=== PATIENT | female | born 1935 | race Caucasian/White ===

== ENCOUNTER 2018-12-08 09:42 | Day surgery (SDC) | payer MEDICARE ==
[2018-12-08] MEDS ORDERED: LIDOcaine 2% 5ml jelly ONE (11:33)
== END 2018-12-08 12:35 | disposition home or self-care (01) ==
LOC: WOUND CARE 09:42
PROVIDERS: ATTEND Surgery
DX: E11.622 Type 2 diabetes mellitus with other skin ulcer (principal); L97.812 Non-pressure chronic ulcer of other part of right lower leg with fat layer exposed; L97.821 Non-pressure chronic ulcer of other part of left lower leg limited to breakdown of skin; E11.65 Type 2 diabetes mellitus with hyperglycemia; I10 Essential (primary) hypertension; E78.00 Pure hypercholesterolemia, unspecified; L03.116 Cellulitis of left lower limb; L03.115 Cellulitis of right lower limb; Z90.710 Acquired absence of both cervix and uterus
CPT/HCPCS: 36416; 82948; 97597; A6021; A6154

== ENCOUNTER 2018-12-15 10:00 | Day surgery (SDC) | payer MEDICARE ==
[2018-12-15] MEDS ORDERED: LIDOcaine 2% 5ml jelly ONE (10:45)
== END 2018-12-15 12:25 | disposition home or self-care (01) ==
LOC: WOUND CARE 10:00
PROVIDERS: ATTEND Surgery
DX: E11.622 Type 2 diabetes mellitus with other skin ulcer (principal); L97.812 Non-pressure chronic ulcer of other part of right lower leg with fat layer exposed; L97.821 Non-pressure chronic ulcer of other part of left lower leg limited to breakdown of skin; E11.65 Type 2 diabetes mellitus with hyperglycemia; I10 Essential (primary) hypertension; E78.00 Pure hypercholesterolemia, unspecified; L03.116 Cellulitis of left lower limb; L03.115 Cellulitis of right lower limb; Z90.710 Acquired absence of both cervix and uterus
CPT/HCPCS: 36416; 82948; 97597; A4663; A6021; A6154

== ENCOUNTER 2018-12-23 09:49 | Day surgery (SDC) | payer MEDICARE ==
[2018-12-23] MEDS ORDERED: LIDOcaine/PRILOcaine 5gm cream TP ONE (10:20)
== END 2018-12-23 11:41 | disposition home or self-care (01) ==
LOC: WOUND CARE 09:49
PROVIDERS: ATTEND Surgery
DX: E11.622 Type 2 diabetes mellitus with other skin ulcer (principal); L97.812 Non-pressure chronic ulcer of other part of right lower leg with fat layer exposed; L97.821 Non-pressure chronic ulcer of other part of left lower leg limited to breakdown of skin; E11.65 Type 2 diabetes mellitus with hyperglycemia; I10 Essential (primary) hypertension; E78.00 Pure hypercholesterolemia, unspecified; L03.116 Cellulitis of left lower limb; L03.115 Cellulitis of right lower limb; Z90.710 Acquired absence of both cervix and uterus
CPT/HCPCS: 29581; A4663; A6021; A6154; A6446

== ENCOUNTER 2018-12-30 09:50 | Day surgery (SDC) | payer MEDICARE ==
[2018-12-30] MEDS ORDERED: LIDOcaine 2% 5ml jelly ONE (10:20)
== END 2018-12-30 11:04 | disposition home or self-care (01) ==
LOC: WOUND CARE 09:50
PROVIDERS: ATTEND Surgery
DX: E11.622 Type 2 diabetes mellitus with other skin ulcer (principal); L97.812 Non-pressure chronic ulcer of other part of right lower leg with fat layer exposed; L97.821 Non-pressure chronic ulcer of other part of left lower leg limited to breakdown of skin; E11.65 Type 2 diabetes mellitus with hyperglycemia; I10 Essential (primary) hypertension; E78.00 Pure hypercholesterolemia, unspecified; L03.116 Cellulitis of left lower limb; L03.115 Cellulitis of right lower limb; Z90.710 Acquired absence of both cervix and uterus
CPT/HCPCS: 97597; A4663; A6021; A6154; A6446

== ENCOUNTER 2019-01-06 09:45 | Day surgery (SDC) | payer MEDICARE ==
[2019-01-06] MEDS ORDERED: LIDOcaine 2% 5ml jelly ONE ×2 (10:51)
== END 2019-01-06 12:05 | disposition home or self-care (01) ==
LOC: WOUND CARE 09:45
PROVIDERS: ATTEND Surgery
DX: E11.622 Type 2 diabetes mellitus with other skin ulcer (principal); L97.812 Non-pressure chronic ulcer of other part of right lower leg with fat layer exposed; L97.821 Non-pressure chronic ulcer of other part of left lower leg limited to breakdown of skin; E11.36 Type 2 diabetes mellitus with diabetic cataract; E11.65 Type 2 diabetes mellitus with hyperglycemia; M19.90 Unspecified osteoarthritis, unspecified site; I10 Essential (primary) hypertension; E78.00 Pure hypercholesterolemia, unspecified; L03.116 Cellulitis of left lower limb; L03.115 Cellulitis of right lower limb; Z90.710 Acquired absence of both cervix and uterus; Z86.73 Personal history of transient ischemic attack (TIA), and cerebral infarction without residual deficits; Z87.891 Personal history of nicotine dependence
CPT/HCPCS: 82948; A6209; A6222; C5271; Q4102; A4663; A6250; A6446

== ENCOUNTER 2019-01-14 10:55 | Day surgery (SDC) | payer MEDICARE ==
[2019-01-14] MEDS ORDERED: LIDOcaine 2% 5ml jelly ONE (11:23)
== END 2019-01-14 12:46 | disposition home or self-care (01) ==
LOC: WOUND CARE 10:55
PROVIDERS: ATTEND Surgery
DX: E11.622 Type 2 diabetes mellitus with other skin ulcer (principal); L97.812 Non-pressure chronic ulcer of other part of right lower leg with fat layer exposed; L97.821 Non-pressure chronic ulcer of other part of left lower leg limited to breakdown of skin; E11.36 Type 2 diabetes mellitus with diabetic cataract; E11.65 Type 2 diabetes mellitus with hyperglycemia; M19.90 Unspecified osteoarthritis, unspecified site; I10 Essential (primary) hypertension; E78.00 Pure hypercholesterolemia, unspecified; L03.116 Cellulitis of left lower limb; L03.115 Cellulitis of right lower limb; Z90.710 Acquired absence of both cervix and uterus; Z86.73 Personal history of transient ischemic attack (TIA), and cerebral infarction without residual deficits; Z87.891 Personal history of nicotine dependence
CPT/HCPCS: 97597; A4663; A6021; A6154; A6446

== ENCOUNTER 2019-01-20 10:10 | Day surgery (SDC) | payer MEDICARE ==
[2019-01-20] MEDS ORDERED: LIDOcaine 2% 5ml jelly ONE (10:50)
== END 2019-01-20 12:16 | disposition home or self-care (01) ==
LOC: WOUND CARE 10:10
PROVIDERS: ATTEND Surgery
DX: E11.622 Type 2 diabetes mellitus with other skin ulcer (principal); L97.812 Non-pressure chronic ulcer of other part of right lower leg with fat layer exposed; L97.821 Non-pressure chronic ulcer of other part of left lower leg limited to breakdown of skin; E11.36 Type 2 diabetes mellitus with diabetic cataract; E11.65 Type 2 diabetes mellitus with hyperglycemia; M19.90 Unspecified osteoarthritis, unspecified site; I10 Essential (primary) hypertension; E78.00 Pure hypercholesterolemia, unspecified; L03.116 Cellulitis of left lower limb; L03.115 Cellulitis of right lower limb; Z90.710 Acquired absence of both cervix and uterus; Z86.73 Personal history of transient ischemic attack (TIA), and cerebral infarction without residual deficits; Z87.891 Personal history of nicotine dependence
CPT/HCPCS: 97597; A6209; A6222; C5271; Q4102; A4663; A6250; A6446

== ENCOUNTER 2019-01-27 10:34 | Day surgery (SDC) | payer MEDICARE ==
[2019-01-27] MEDS ORDERED: LIDOcaine 2% 5ml jelly ONE (11:38)
== END 2019-01-27 12:46 | disposition home or self-care (01) ==
LOC: WOUND CARE 10:34
PROVIDERS: ATTEND Surgery
DX: E11.622 Type 2 diabetes mellitus with other skin ulcer (principal); L97.812 Non-pressure chronic ulcer of other part of right lower leg with fat layer exposed; L97.821 Non-pressure chronic ulcer of other part of left lower leg limited to breakdown of skin; E11.36 Type 2 diabetes mellitus with diabetic cataract; E11.65 Type 2 diabetes mellitus with hyperglycemia; M19.90 Unspecified osteoarthritis, unspecified site; I10 Essential (primary) hypertension; E78.00 Pure hypercholesterolemia, unspecified; L03.116 Cellulitis of left lower limb; L03.115 Cellulitis of right lower limb; Z90.710 Acquired absence of both cervix and uterus; Z86.73 Personal history of transient ischemic attack (TIA), and cerebral infarction without residual deficits; Z87.891 Personal history of nicotine dependence
CPT/HCPCS: 36416; 82948; A6222; C5271; Q4102; A4663; A6250; A6446

== ENCOUNTER 2019-02-04 11:24 | Day surgery (SDC) | payer MEDICARE ==
[2019-02-04] MEDS ORDERED: LIDOcaine 2% 5ml jelly ONE (11:55)
== END 2019-02-04 12:52 | disposition home or self-care (01) ==
LOC: WOUND CARE 11:24
PROVIDERS: ATTEND Nurse Practitioner Family
DX: E11.622 Type 2 diabetes mellitus with other skin ulcer (principal); L97.812 Non-pressure chronic ulcer of other part of right lower leg with fat layer exposed; L97.821 Non-pressure chronic ulcer of other part of left lower leg limited to breakdown of skin; E11.36 Type 2 diabetes mellitus with diabetic cataract; E11.65 Type 2 diabetes mellitus with hyperglycemia; M19.90 Unspecified osteoarthritis, unspecified site; I10 Essential (primary) hypertension; E78.00 Pure hypercholesterolemia, unspecified; L03.116 Cellulitis of left lower limb; L03.115 Cellulitis of right lower limb; Z90.710 Acquired absence of both cervix and uterus; Z86.73 Personal history of transient ischemic attack (TIA), and cerebral infarction without residual deficits; Z87.891 Personal history of nicotine dependence
CPT/HCPCS: 36416; 97597; A4663; A6021; A6154

== ENCOUNTER 2019-02-11 11:18 | Day surgery (SDC) | payer MEDICARE ==
[2019-02-11] MEDS ORDERED: LIDOcaine 2% 5ml jelly ONE (12:01)
== END 2019-02-11 13:10 | disposition home or self-care (01) ==
LOC: WOUND CARE 11:18
PROVIDERS: ATTEND Nurse Practitioner Family
DX: E11.622 Type 2 diabetes mellitus with other skin ulcer (principal); L97.812 Non-pressure chronic ulcer of other part of right lower leg with fat layer exposed; L97.821 Non-pressure chronic ulcer of other part of left lower leg limited to breakdown of skin; E11.36 Type 2 diabetes mellitus with diabetic cataract; E11.65 Type 2 diabetes mellitus with hyperglycemia; M19.90 Unspecified osteoarthritis, unspecified site; I10 Essential (primary) hypertension; E78.00 Pure hypercholesterolemia, unspecified; L03.116 Cellulitis of left lower limb; L03.115 Cellulitis of right lower limb; Z90.710 Acquired absence of both cervix and uterus; Z86.73 Personal history of transient ischemic attack (TIA), and cerebral infarction without residual deficits; Z87.891 Personal history of nicotine dependence
CPT/HCPCS: 36416; 82948; 97597; 97598; A4663; A6021; A6154; A6446

== ENCOUNTER 2019-02-17 10:25 | Day surgery (SDC) | payer MEDICARE ==
[2019-02-17] MEDS ORDERED: LIDOcaine 2% 5ml jelly ONE (11:26)
== END 2019-02-17 12:25 | disposition home or self-care (01) ==
LOC: WOUND CARE 10:25
PROVIDERS: ATTEND Surgery
DX: E11.622 Type 2 diabetes mellitus with other skin ulcer (principal); L97.812 Non-pressure chronic ulcer of other part of right lower leg with fat layer exposed; L97.821 Non-pressure chronic ulcer of other part of left lower leg limited to breakdown of skin; E11.36 Type 2 diabetes mellitus with diabetic cataract; E11.65 Type 2 diabetes mellitus with hyperglycemia; E11.69 Type 2 diabetes mellitus with other specified complication; M19.90 Unspecified osteoarthritis, unspecified site; I10 Essential (primary) hypertension; E78.00 Pure hypercholesterolemia, unspecified; K21.9 Gastro-esophageal reflux disease without esophagitis; Z90.710 Acquired absence of both cervix and uterus; Z86.73 Personal history of transient ischemic attack (TIA), and cerebral infarction without residual deficits; Z87.891 Personal history of nicotine dependence
CPT/HCPCS: 82948; 97597; 97598; A4663; A6021; A6154; A6446

== ENCOUNTER 2019-02-24 10:20 | Day surgery (SDC) | payer MEDICARE ==
[2019-02-24] MEDS ORDERED: LIDOcaine 2% 5ml jelly ONE ×2 (11:30→11:45)
== END 2019-02-24 12:17 | disposition home or self-care (01) ==
LOC: WOUND CARE 10:20
PROVIDERS: ATTEND Surgery
DX: E11.622 Type 2 diabetes mellitus with other skin ulcer (principal); L97.812 Non-pressure chronic ulcer of other part of right lower leg with fat layer exposed; L97.821 Non-pressure chronic ulcer of other part of left lower leg limited to breakdown of skin; E11.36 Type 2 diabetes mellitus with diabetic cataract; E11.65 Type 2 diabetes mellitus with hyperglycemia; E11.69 Type 2 diabetes mellitus with other specified complication; M19.90 Unspecified osteoarthritis, unspecified site; I10 Essential (primary) hypertension; E78.00 Pure hypercholesterolemia, unspecified; K21.9 Gastro-esophageal reflux disease without esophagitis; Z90.710 Acquired absence of both cervix and uterus; Z86.73 Personal history of transient ischemic attack (TIA), and cerebral infarction without residual deficits; Z87.891 Personal history of nicotine dependence
CPT/HCPCS: 36416; 82948; 97597; 97598; A4663; A6021; A6154; A6446

== ENCOUNTER 2019-03-03 09:31 | Day surgery (SDC) | payer MEDICARE ==
[2019-03-03] MEDS ORDERED: LIDOcaine 2% 5ml jelly ONE ×2 (10:45)
== END 2019-03-03 11:25 | disposition home or self-care (01) ==
LOC: WOUND CARE 09:31
PROVIDERS: ATTEND Surgery
DX: E11.622 Type 2 diabetes mellitus with other skin ulcer (principal); L97.812 Non-pressure chronic ulcer of other part of right lower leg with fat layer exposed; L97.821 Non-pressure chronic ulcer of other part of left lower leg limited to breakdown of skin; E11.36 Type 2 diabetes mellitus with diabetic cataract; E11.65 Type 2 diabetes mellitus with hyperglycemia; E11.69 Type 2 diabetes mellitus with other specified complication; M19.90 Unspecified osteoarthritis, unspecified site; I10 Essential (primary) hypertension; E78.00 Pure hypercholesterolemia, unspecified; K21.9 Gastro-esophageal reflux disease without esophagitis; Z90.710 Acquired absence of both cervix and uterus; Z86.73 Personal history of transient ischemic attack (TIA), and cerebral infarction without residual deficits; Z87.891 Personal history of nicotine dependence
CPT/HCPCS: 82948; 93970; C5271; C5272; Q4102; 15271; 15272; A4663; A6154; A6196; A6446

== ENCOUNTER 2019-03-10 10:27 | Day surgery (SDC) | payer MEDICARE ==
[2019-03-10] MEDS ORDERED: LIDOcaine 2% 5ml jelly ONE ×2 (11:10)
== END 2019-03-10 12:30 | disposition home or self-care (01) ==
LOC: WOUND CARE 10:27
PROVIDERS: ATTEND Surgery
DX: E11.622 Type 2 diabetes mellitus with other skin ulcer (principal); I83.012 Varicose veins of right lower extremity with ulcer of calf; L97.211 Non-pressure chronic ulcer of right calf limited to breakdown of skin; L97.812 Non-pressure chronic ulcer of other part of right lower leg with fat layer exposed; I83.022 Varicose veins of left lower extremity with ulcer of calf; L97.221 Non-pressure chronic ulcer of left calf limited to breakdown of skin; L97.821 Non-pressure chronic ulcer of other part of left lower leg limited to breakdown of skin; E11.36 Type 2 diabetes mellitus with diabetic cataract; E11.65 Type 2 diabetes mellitus with hyperglycemia; E11.69 Type 2 diabetes mellitus with other specified complication; M19.90 Unspecified osteoarthritis, unspecified site; I10 Essential (primary) hypertension; I87.2 Venous insufficiency (chronic) (peripheral); E78.00 Pure hypercholesterolemia, unspecified; K21.9 Gastro-esophageal reflux disease without esophagitis; Z90.710 Acquired absence of both cervix and uterus; Z86.73 Personal history of transient ischemic attack (TIA), and cerebral infarction without residual deficits; Z87.891 Personal history of nicotine dependence
CPT/HCPCS: 36416; 82948; G0463; A4663; A6021; A6154; A6196; A6446

== ENCOUNTER 2019-03-17 10:26 | Day surgery (SDC) | payer MEDICARE ==
[2019-03-17] MEDS ORDERED: LIDOcaine 2% 5ml jelly ONE (11:02)
== END 2019-03-17 11:52 | disposition home or self-care (01) ==
LOC: WOUND CARE 10:26
PROVIDERS: ATTEND Surgery
DX: E11.622 Type 2 diabetes mellitus with other skin ulcer (principal); I83.012 Varicose veins of right lower extremity with ulcer of calf; L97.211 Non-pressure chronic ulcer of right calf limited to breakdown of skin; L97.812 Non-pressure chronic ulcer of other part of right lower leg with fat layer exposed; I83.022 Varicose veins of left lower extremity with ulcer of calf; L97.221 Non-pressure chronic ulcer of left calf limited to breakdown of skin; L97.821 Non-pressure chronic ulcer of other part of left lower leg limited to breakdown of skin; S51.801D Unspecified open wound of right forearm, subsequent encounter; E11.36 Type 2 diabetes mellitus with diabetic cataract; E11.65 Type 2 diabetes mellitus with hyperglycemia; M19.90 Unspecified osteoarthritis, unspecified site; I10 Essential (primary) hypertension; I87.2 Venous insufficiency (chronic) (peripheral); E78.00 Pure hypercholesterolemia, unspecified; K21.9 Gastro-esophageal reflux disease without esophagitis; Z90.710 Acquired absence of both cervix and uterus; Z86.73 Personal history of transient ischemic attack (TIA), and cerebral infarction without residual deficits; Z87.891 Personal history of nicotine dependence; X58.XXXD Exposure to other specified factors, subsequent encounter
CPT/HCPCS: C5271; Q4102; 15271

== ENCOUNTER 2019-03-24 10:27 | Outpatient (CLI) | payer MEDICARE ==
[2019-03-24] MEDS ORDERED: LIDOcaine 2% 5ml jelly ONE (10:47)
== END 2019-03-24 11:57 | disposition home or self-care (01) ==
LOC: WOUND CARE 10:27 → EDSTATUS 10:30 → WOUND CARE 11:57
PROVIDERS: ATTEND Surgery
DX: E11.622 Type 2 diabetes mellitus with other skin ulcer (principal); I83.012 Varicose veins of right lower extremity with ulcer of calf; L97.211 Non-pressure chronic ulcer of right calf limited to breakdown of skin; L97.812 Non-pressure chronic ulcer of other part of right lower leg with fat layer exposed; I83.022 Varicose veins of left lower extremity with ulcer of calf; L97.221 Non-pressure chronic ulcer of left calf limited to breakdown of skin; L97.821 Non-pressure chronic ulcer of other part of left lower leg limited to breakdown of skin; E11.36 Type 2 diabetes mellitus with diabetic cataract; E11.65 Type 2 diabetes mellitus with hyperglycemia; M19.90 Unspecified osteoarthritis, unspecified site; I10 Essential (primary) hypertension; I87.2 Venous insufficiency (chronic) (peripheral); E78.00 Pure hypercholesterolemia, unspecified; K21.9 Gastro-esophageal reflux disease without esophagitis; Z90.710 Acquired absence of both cervix and uterus; Z86.73 Personal history of transient ischemic attack (TIA), and cerebral infarction without residual deficits; Z87.891 Personal history of nicotine dependence
CPT/HCPCS: 36416; 82948; G0463

== ENCOUNTER 2019-03-31 10:29 | Day surgery (SDC) | payer MEDICARE ==
[2019-03-31] MEDS ORDERED: LIDOcaine 2% 5ml jelly ONE (11:02)
== END 2019-03-31 11:53 | disposition home or self-care (01) ==
LOC: WOUND CARE 10:29
PROVIDERS: ATTEND Surgery
DX: E11.622 Type 2 diabetes mellitus with other skin ulcer (principal); I83.012 Varicose veins of right lower extremity with ulcer of calf; L97.211 Non-pressure chronic ulcer of right calf limited to breakdown of skin; L97.812 Non-pressure chronic ulcer of other part of right lower leg with fat layer exposed; I83.022 Varicose veins of left lower extremity with ulcer of calf; L97.221 Non-pressure chronic ulcer of left calf limited to breakdown of skin; L97.821 Non-pressure chronic ulcer of other part of left lower leg limited to breakdown of skin; E11.36 Type 2 diabetes mellitus with diabetic cataract; E11.65 Type 2 diabetes mellitus with hyperglycemia; M19.90 Unspecified osteoarthritis, unspecified site; I10 Essential (primary) hypertension; I87.2 Venous insufficiency (chronic) (peripheral); E78.00 Pure hypercholesterolemia, unspecified; K21.9 Gastro-esophageal reflux disease without esophagitis; Z90.710 Acquired absence of both cervix and uterus; Z86.73 Personal history of transient ischemic attack (TIA), and cerebral infarction without residual deficits; Z87.891 Personal history of nicotine dependence
CPT/HCPCS: 15271; 36416; 82948; 97597; Q4101

== ENCOUNTER 2019-04-07 10:30 | Outpatient (CLI) | payer MEDICARE ==
[2019-04-07] MEDS ORDERED: LIDOcaine 2% 5ml jelly ONE (11:21)
== END 2019-04-07 12:10 | disposition home or self-care (01) ==
LOC: WOUND CARE 10:30 → EDSTATUS 10:30 → WOUND CARE 12:10
PROVIDERS: ATTEND Surgery
DX: E11.622 Type 2 diabetes mellitus with other skin ulcer (principal); I83.012 Varicose veins of right lower extremity with ulcer of calf; L97.211 Non-pressure chronic ulcer of right calf limited to breakdown of skin; L97.812 Non-pressure chronic ulcer of other part of right lower leg with fat layer exposed; I83.022 Varicose veins of left lower extremity with ulcer of calf; L97.221 Non-pressure chronic ulcer of left calf limited to breakdown of skin; L97.821 Non-pressure chronic ulcer of other part of left lower leg limited to breakdown of skin; E11.36 Type 2 diabetes mellitus with diabetic cataract; E11.65 Type 2 diabetes mellitus with hyperglycemia; M19.90 Unspecified osteoarthritis, unspecified site; I10 Essential (primary) hypertension; I87.2 Venous insufficiency (chronic) (peripheral); E78.00 Pure hypercholesterolemia, unspecified; K21.9 Gastro-esophageal reflux disease without esophagitis; Z90.710 Acquired absence of both cervix and uterus; Z86.73 Personal history of transient ischemic attack (TIA), and cerebral infarction without residual deficits; Z87.891 Personal history of nicotine dependence
CPT/HCPCS: 36416; 82948; G0463

== ENCOUNTER 2019-04-14 10:25 | Day surgery (SDC) | payer MEDICARE ==
[2019-04-14] MEDS ORDERED: LIDOcaine 2% 5ml jelly ONE (10:54)
== END 2019-04-14 11:57 | disposition home or self-care (01) ==
LOC: WOUND CARE 10:25
PROVIDERS: ATTEND Surgery
DX: E11.622 Type 2 diabetes mellitus with other skin ulcer (principal); I83.012 Varicose veins of right lower extremity with ulcer of calf; L97.211 Non-pressure chronic ulcer of right calf limited to breakdown of skin; L97.812 Non-pressure chronic ulcer of other part of right lower leg with fat layer exposed; I83.022 Varicose veins of left lower extremity with ulcer of calf; L97.221 Non-pressure chronic ulcer of left calf limited to breakdown of skin; L97.821 Non-pressure chronic ulcer of other part of left lower leg limited to breakdown of skin; E11.36 Type 2 diabetes mellitus with diabetic cataract; E11.65 Type 2 diabetes mellitus with hyperglycemia; M19.90 Unspecified osteoarthritis, unspecified site; I10 Essential (primary) hypertension; I87.2 Venous insufficiency (chronic) (peripheral); E78.00 Pure hypercholesterolemia, unspecified; K21.9 Gastro-esophageal reflux disease without esophagitis; Z90.710 Acquired absence of both cervix and uterus; Z86.73 Personal history of transient ischemic attack (TIA), and cerebral infarction without residual deficits; Z87.891 Personal history of nicotine dependence
CPT/HCPCS: 15271; 97597; A6209; Q4101; A4663; A6196; A6250; A6446

== ENCOUNTER 2019-04-21 10:31 | Day surgery (SDC) | payer MEDICARE ==
[2019-04-21] MEDS ORDERED: LIDOcaine 2% 5ml jelly ONE ×2 (11:03)
[2019-04-21] MEDS ORDERED: LIDOcaine 1%/PF 5ML 10 MG/ML VIAL ONE (11:24)
== END 2019-04-21 11:55 | disposition home or self-care (01) ==
LOC: WOUND CARE 10:31
PROVIDERS: ATTEND Surgery
DX: E11.622 Type 2 diabetes mellitus with other skin ulcer (principal); I83.012 Varicose veins of right lower extremity with ulcer of calf; L97.211 Non-pressure chronic ulcer of right calf limited to breakdown of skin; L97.812 Non-pressure chronic ulcer of other part of right lower leg with fat layer exposed; I83.022 Varicose veins of left lower extremity with ulcer of calf; L97.221 Non-pressure chronic ulcer of left calf limited to breakdown of skin; L97.821 Non-pressure chronic ulcer of other part of left lower leg limited to breakdown of skin; K61.0 Anal abscess; E11.36 Type 2 diabetes mellitus with diabetic cataract; E11.65 Type 2 diabetes mellitus with hyperglycemia; M19.90 Unspecified osteoarthritis, unspecified site; I10 Essential (primary) hypertension; I87.2 Venous insufficiency (chronic) (peripheral); E78.00 Pure hypercholesterolemia, unspecified; K21.9 Gastro-esophageal reflux disease without esophagitis; Z90.710 Acquired absence of both cervix and uterus; Z86.73 Personal history of transient ischemic attack (TIA), and cerebral infarction without residual deficits; Z87.891 Personal history of nicotine dependence
CPT/HCPCS: 10140; 36416; 82948; 87070; 87075; 87102; A6266; A4663; A6021; A6154; A6196; A6253; A6446

== ENCOUNTER 2019-04-23 10:00 | Day surgery (SDC) | payer MEDICARE ==
[2019-04-23] MEDS ORDERED: LIDOcaine 2% 5ml jelly ONE ×2 (10:32)
== END 2019-04-23 13:02 | disposition home or self-care (01) ==
LOC: WOUND CARE 10:00
PROVIDERS: ATTEND Surgery
DX: E11.622 Type 2 diabetes mellitus with other skin ulcer (principal); I83.012 Varicose veins of right lower extremity with ulcer of calf; L97.211 Non-pressure chronic ulcer of right calf limited to breakdown of skin; L97.812 Non-pressure chronic ulcer of other part of right lower leg with fat layer exposed; I83.022 Varicose veins of left lower extremity with ulcer of calf; L97.221 Non-pressure chronic ulcer of left calf limited to breakdown of skin; L97.821 Non-pressure chronic ulcer of other part of left lower leg limited to breakdown of skin; K61.0 Anal abscess; E11.36 Type 2 diabetes mellitus with diabetic cataract; E11.65 Type 2 diabetes mellitus with hyperglycemia; M19.90 Unspecified osteoarthritis, unspecified site; I10 Essential (primary) hypertension; I87.2 Venous insufficiency (chronic) (peripheral); E78.00 Pure hypercholesterolemia, unspecified; K21.9 Gastro-esophageal reflux disease without esophagitis; Z90.710 Acquired absence of both cervix and uterus; Z86.73 Personal history of transient ischemic attack (TIA), and cerebral infarction without residual deficits; Z87.891 Personal history of nicotine dependence
CPT/HCPCS: 15271; 82948; 97597; A6209; Q4101; A4663; A6154; A6196; A6250; A6446

== ENCOUNTER 2019-04-28 08:53 | Day surgery (SDC) | payer MEDICARE ==
[2019-04-28] MEDS ORDERED: LIDOcaine 2% 5ml jelly ONE (11:04)
== END 2019-04-28 12:14 | disposition home or self-care (01) ==
LOC: WOUND CARE 08:53
PROVIDERS: ATTEND Surgery
DX: E11.622 Type 2 diabetes mellitus with other skin ulcer (principal); I83.012 Varicose veins of right lower extremity with ulcer of calf; L97.211 Non-pressure chronic ulcer of right calf limited to breakdown of skin; L97.812 Non-pressure chronic ulcer of other part of right lower leg with fat layer exposed; I83.022 Varicose veins of left lower extremity with ulcer of calf; L97.221 Non-pressure chronic ulcer of left calf limited to breakdown of skin; L97.821 Non-pressure chronic ulcer of other part of left lower leg limited to breakdown of skin; K61.0 Anal abscess; E11.36 Type 2 diabetes mellitus with diabetic cataract; E11.65 Type 2 diabetes mellitus with hyperglycemia; M19.90 Unspecified osteoarthritis, unspecified site; I10 Essential (primary) hypertension; I87.2 Venous insufficiency (chronic) (peripheral); E78.00 Pure hypercholesterolemia, unspecified; K21.9 Gastro-esophageal reflux disease without esophagitis; Z90.710 Acquired absence of both cervix and uterus; Z86.73 Personal history of transient ischemic attack (TIA), and cerebral infarction without residual deficits; Z87.891 Personal history of nicotine dependence
CPT/HCPCS: A4663; A6154; A6196; A6253; A6446; G0463

== ENCOUNTER 2019-05-06 11:00 | Day surgery (SDC) | payer MEDICARE ==
[2019-05-06] MEDS ORDERED: LIDOcaine 2% 5ml jelly ONE (11:17)
== END 2019-05-06 12:43 | disposition home or self-care (01) ==
LOC: WOUND CARE 11:00
PROVIDERS: ATTEND Surgery
DX: E11.622 Type 2 diabetes mellitus with other skin ulcer (principal); I83.012 Varicose veins of right lower extremity with ulcer of calf; L97.211 Non-pressure chronic ulcer of right calf limited to breakdown of skin; L97.812 Non-pressure chronic ulcer of other part of right lower leg with fat layer exposed; I83.022 Varicose veins of left lower extremity with ulcer of calf; L97.221 Non-pressure chronic ulcer of left calf limited to breakdown of skin; L97.821 Non-pressure chronic ulcer of other part of left lower leg limited to breakdown of skin; K61.0 Anal abscess; E11.36 Type 2 diabetes mellitus with diabetic cataract; E11.65 Type 2 diabetes mellitus with hyperglycemia; M19.90 Unspecified osteoarthritis, unspecified site; I10 Essential (primary) hypertension; I87.2 Venous insufficiency (chronic) (peripheral); E78.00 Pure hypercholesterolemia, unspecified; K21.9 Gastro-esophageal reflux disease without esophagitis; Z90.710 Acquired absence of both cervix and uterus; Z86.73 Personal history of transient ischemic attack (TIA), and cerebral infarction without residual deficits; Z87.891 Personal history of nicotine dependence
CPT/HCPCS: 15271; 97597; Q4101

== ENCOUNTER 2019-05-14 11:24 | Outpatient (CLI) | payer MEDICARE | END 2019-05-14 12:25 | disposition home or self-care (01) | LOC: WOUND CARE 11:24 | PROVIDERS: ATTEND Nurse Practitioner | DX: E11.622 Type 2 diabetes mellitus with other skin ulcer (principal); I83.012 Varicose veins of right lower extremity with ulcer of calf; L97.211 Non-pressure chronic ulcer of right calf limited to breakdown of skin; L97.812 Non-pressure chronic ulcer of other part of right lower leg with fat layer exposed; I83.022 Varicose veins of left lower extremity with ulcer of calf; L97.221 Non-pressure chronic ulcer of left calf limited to breakdown of skin; L97.821 Non-pressure chronic ulcer of other part of left lower leg limited to breakdown of skin; K61.0 Anal abscess; E11.36 Type 2 diabetes mellitus with diabetic cataract; E11.65 Type 2 diabetes mellitus with hyperglycemia; M19.90 Unspecified osteoarthritis, unspecified site; I10 Essential (primary) hypertension; I87.2 Venous insufficiency (chronic) (peripheral); E78.00 Pure hypercholesterolemia, unspecified; K21.9 Gastro-esophageal reflux disease without esophagitis; Z90.710 Acquired absence of both cervix and uterus; Z86.73 Personal history of transient ischemic attack (TIA), and cerebral infarction without residual deficits; Z87.891 Personal history of nicotine dependence | CPT/HCPCS: 36416; 82948; G0463 ==

== ENCOUNTER 2019-05-21 11:30 | Outpatient (CLI) | payer MEDICARE ==
[2019-05-21 12:26] LABS: BASOPHILS # (AUTO) 0.1 X10'3 (0-0.2); BASOPHILS % (AUTO) 0.7 % (0-1); EOSINOPHILS # (AUTO) 0.3 X10'3 (0-0.9); EOSINOPHILS % (AUTO) 3.4 % (0-6); HEMATOCRIT 38.2 % (35.0-45.0); HEMOGLOBIN 12.8 g/dl (12.0-16.0); LYMPHOCYTES # (AUTO) 3.4 X10'3 (1.1-4.8); LYMPHOCYTES % (AUTO) 38.8 % (21-51); MEAN CORPUSCULAR HEMOGLOBIN 28.9 PG (27.0-31.0); MEAN CORPUSCULAR HGB CONC 33.4 g/dL (33.0-36.5); MEAN CORPUSCULAR VOLUME 86.5 FL (78-98); MEAN PLATELET VOLUME 7.7 FL (7.4-10.4); MONOCYTES # (AUTO) 0.7 X10'3 (0-0.9); MONOCYTES % (AUTO) 7.9 % (2-12); NEUTROPHILS # (AUTO) 4.3 X10'3 (1.8-7.7); NEUTROPHILS % (AUTO) 49.2 % (42-75); PLATELET COUNT 262 X10'3 (140-440); RED BLOOD COUNT 4.42 X10'6 (4.20-5.60); RED CELL DISTRIBUTION WIDTH 15.1 % (11.5-14.5); WHITE BLOOD COUNT 8.8 X10'3 (4.5-11.0)
[2019-05-21 12:34] LABS: ALANINE AMINOTRANSFERASE 15 U/L (12-78); ALBUMIN 3.5 G/DL (3.4-5.0); ALKALINE PHOSPHATASE 92 IU/L (46-116); ANION GAP 4 (8-16); ASPARTATE AMINO TRANSFERASE 14 U/L (10-37); BILIRUBIN,TOTAL 0.4 MG/DL (0.1-1.0); BLOOD UREA NITROGEN 18 MG/DL (7-18); BUN/CREATININE RATIO 21.7 (6.6-38.0); CALCIUM 10.9 MG/DL (8.5-10.1); CHLORIDE 105 MMOL/L (99-107); CREATININE 0.83 MG/DL (0.40-0.90); GLUCOSE 160 MG/DL (70-104); POTASSIUM 4.2 MMOL/L (3.5-5.1); SODIUM 142 MMOL/L (135-145); TOTAL CARBON DIOXIDE 33.4 MMOL/L (24-32); eGFR 65 ML/MIN
== END 2019-05-21 12:56 | disposition home or self-care (01) ==
LOC: WOUND CARE 11:30 → EDSTATUS 11:40 → WOUND CARE 12:56
PROVIDERS: ATTEND Nurse Practitioner
DX: E11.622 Type 2 diabetes mellitus with other skin ulcer (principal); I83.012 Varicose veins of right lower extremity with ulcer of calf; L97.211 Non-pressure chronic ulcer of right calf limited to breakdown of skin; L97.812 Non-pressure chronic ulcer of other part of right lower leg with fat layer exposed; I83.022 Varicose veins of left lower extremity with ulcer of calf; L97.221 Non-pressure chronic ulcer of left calf limited to breakdown of skin; L97.821 Non-pressure chronic ulcer of other part of left lower leg limited to breakdown of skin; K61.0 Anal abscess; E11.36 Type 2 diabetes mellitus with diabetic cataract; E11.65 Type 2 diabetes mellitus with hyperglycemia; M19.90 Unspecified osteoarthritis, unspecified site; I10 Essential (primary) hypertension; I87.2 Venous insufficiency (chronic) (peripheral); E78.00 Pure hypercholesterolemia, unspecified; K21.9 Gastro-esophageal reflux disease without esophagitis; Z90.710 Acquired absence of both cervix and uterus; Z86.73 Personal history of transient ischemic attack (TIA), and cerebral infarction without residual deficits; Z87.891 Personal history of nicotine dependence
CPT/HCPCS: 29580; 36415; 36416; 80053; 82948; 85025; 93306

== ENCOUNTER 2019-05-28 11:20 | Outpatient (CLI) | payer MEDICARE ==
[2019-05-28] MEDS ORDERED: LIDOcaine 2% 5ml jelly ONE (11:31)
== END 2019-05-28 12:27 | disposition home or self-care (01) ==
LOC: WOUND CARE 11:20 → EDSTATUS 11:40 → WOUND CARE 12:27
PROVIDERS: ATTEND Nurse Practitioner
DX: E11.622 Type 2 diabetes mellitus with other skin ulcer (principal); I83.012 Varicose veins of right lower extremity with ulcer of calf; L97.211 Non-pressure chronic ulcer of right calf limited to breakdown of skin; L97.812 Non-pressure chronic ulcer of other part of right lower leg with fat layer exposed; I83.022 Varicose veins of left lower extremity with ulcer of calf; L97.221 Non-pressure chronic ulcer of left calf limited to breakdown of skin; L97.821 Non-pressure chronic ulcer of other part of left lower leg limited to breakdown of skin; K61.0 Anal abscess; E11.36 Type 2 diabetes mellitus with diabetic cataract; E11.65 Type 2 diabetes mellitus with hyperglycemia; M19.90 Unspecified osteoarthritis, unspecified site; I10 Essential (primary) hypertension; I87.2 Venous insufficiency (chronic) (peripheral); E78.00 Pure hypercholesterolemia, unspecified; K21.9 Gastro-esophageal reflux disease without esophagitis; Z90.710 Acquired absence of both cervix and uterus; Z86.73 Personal history of transient ischemic attack (TIA), and cerebral infarction without residual deficits; Z87.891 Personal history of nicotine dependence
CPT/HCPCS: 29580; 29581; 36416; 82948

== ENCOUNTER 2019-06-01 13:45 | Outpatient (CLI) | payer MEDICARE | END 2019-06-01 14:50 | disposition home or self-care (01) | LOC: WOUND CARE 13:45 | PROVIDERS: ATTEND Nurse Practitioner Family | DX: E11.622 Type 2 diabetes mellitus with other skin ulcer (principal); I83.012 Varicose veins of right lower extremity with ulcer of calf; L97.211 Non-pressure chronic ulcer of right calf limited to breakdown of skin; L97.812 Non-pressure chronic ulcer of other part of right lower leg with fat layer exposed; I83.022 Varicose veins of left lower extremity with ulcer of calf; L97.221 Non-pressure chronic ulcer of left calf limited to breakdown of skin; L97.821 Non-pressure chronic ulcer of other part of left lower leg limited to breakdown of skin; K61.0 Anal abscess; E11.36 Type 2 diabetes mellitus with diabetic cataract; E11.65 Type 2 diabetes mellitus with hyperglycemia; M19.90 Unspecified osteoarthritis, unspecified site; I10 Essential (primary) hypertension; I87.2 Venous insufficiency (chronic) (peripheral); E78.00 Pure hypercholesterolemia, unspecified; K21.9 Gastro-esophageal reflux disease without esophagitis; Z90.710 Acquired absence of both cervix and uterus; Z86.73 Personal history of transient ischemic attack (TIA), and cerebral infarction without residual deficits; Z87.891 Personal history of nicotine dependence | CPT/HCPCS: 29580; 36416; 82948 ==

== ENCOUNTER 2019-06-03 13:35 | Day surgery (SDC) | payer MEDICARE ==
[2019-06-03] MEDS ORDERED: LIDOcaine 2% 5ml jelly ONE (13:57)
== END 2019-06-03 14:35 | disposition home or self-care (01) ==
LOC: WOUND CARE 13:35
PROVIDERS: ATTEND Nurse Practitioner
DX: E11.622 Type 2 diabetes mellitus with other skin ulcer (principal); I83.012 Varicose veins of right lower extremity with ulcer of calf; L97.211 Non-pressure chronic ulcer of right calf limited to breakdown of skin; L97.812 Non-pressure chronic ulcer of other part of right lower leg with fat layer exposed; I83.022 Varicose veins of left lower extremity with ulcer of calf; L97.221 Non-pressure chronic ulcer of left calf limited to breakdown of skin; L97.821 Non-pressure chronic ulcer of other part of left lower leg limited to breakdown of skin; K61.0 Anal abscess; E11.36 Type 2 diabetes mellitus with diabetic cataract; E11.65 Type 2 diabetes mellitus with hyperglycemia; M19.90 Unspecified osteoarthritis, unspecified site; I10 Essential (primary) hypertension; I87.2 Venous insufficiency (chronic) (peripheral); E78.00 Pure hypercholesterolemia, unspecified; K21.9 Gastro-esophageal reflux disease without esophagitis; Z90.710 Acquired absence of both cervix and uterus; Z86.73 Personal history of transient ischemic attack (TIA), and cerebral infarction without residual deficits; Z87.891 Personal history of nicotine dependence
CPT/HCPCS: 36416; 82948; 97597

== ENCOUNTER 2019-06-10 13:32 | Day surgery (SDC) | payer MEDICARE ==
[2019-06-10] MEDS ORDERED: LIDOcaine 2% 5ml jelly ONE (14:01)
== END 2019-06-10 15:02 | disposition home or self-care (01) ==
LOC: WOUND CARE 13:32
PROVIDERS: ATTEND Nurse Practitioner
DX: E11.622 Type 2 diabetes mellitus with other skin ulcer (principal); I83.012 Varicose veins of right lower extremity with ulcer of calf; L97.211 Non-pressure chronic ulcer of right calf limited to breakdown of skin; L97.812 Non-pressure chronic ulcer of other part of right lower leg with fat layer exposed; I83.022 Varicose veins of left lower extremity with ulcer of calf; L97.221 Non-pressure chronic ulcer of left calf limited to breakdown of skin; L97.821 Non-pressure chronic ulcer of other part of left lower leg limited to breakdown of skin; K61.0 Anal abscess; E11.36 Type 2 diabetes mellitus with diabetic cataract; E11.65 Type 2 diabetes mellitus with hyperglycemia; M19.90 Unspecified osteoarthritis, unspecified site; I10 Essential (primary) hypertension; I87.2 Venous insufficiency (chronic) (peripheral); E78.00 Pure hypercholesterolemia, unspecified; K21.9 Gastro-esophageal reflux disease without esophagitis; Z90.710 Acquired absence of both cervix and uterus; Z86.73 Personal history of transient ischemic attack (TIA), and cerebral infarction without residual deficits; Z87.891 Personal history of nicotine dependence
CPT/HCPCS: 36416; 82948; 97597

== ENCOUNTER 2019-06-16 13:53 | Day surgery (SDC) | payer MEDICARE ==
[2019-06-16] MEDS ORDERED: LIDOcaine 2% 5ml jelly ONE (14:05)
== END 2019-06-16 14:58 | disposition home or self-care (01) ==
LOC: WOUND CARE 13:53
PROVIDERS: ATTEND Nurse Practitioner
DX: E11.622 Type 2 diabetes mellitus with other skin ulcer (principal); I83.012 Varicose veins of right lower extremity with ulcer of calf; L97.211 Non-pressure chronic ulcer of right calf limited to breakdown of skin; L97.812 Non-pressure chronic ulcer of other part of right lower leg with fat layer exposed; I83.022 Varicose veins of left lower extremity with ulcer of calf; L97.221 Non-pressure chronic ulcer of left calf limited to breakdown of skin; L97.821 Non-pressure chronic ulcer of other part of left lower leg limited to breakdown of skin; K61.0 Anal abscess; E11.36 Type 2 diabetes mellitus with diabetic cataract; E11.65 Type 2 diabetes mellitus with hyperglycemia; M19.90 Unspecified osteoarthritis, unspecified site; I10 Essential (primary) hypertension; I87.2 Venous insufficiency (chronic) (peripheral); E78.00 Pure hypercholesterolemia, unspecified; K21.9 Gastro-esophageal reflux disease without esophagitis; Z90.710 Acquired absence of both cervix and uterus; Z86.73 Personal history of transient ischemic attack (TIA), and cerebral infarction without residual deficits; Z87.891 Personal history of nicotine dependence
CPT/HCPCS: 36416; 82948; 97597

== ENCOUNTER 2019-06-24 11:39 | Day surgery (SDC) | payer MEDICARE ==
[2019-06-24] MEDS ORDERED: LIDOcaine 2% 5ml jelly ONE (12:06)
== END 2019-06-24 12:51 | disposition home or self-care (01) ==
LOC: WOUND CARE 11:39
PROVIDERS: ATTEND Nurse Practitioner
DX: E11.622 Type 2 diabetes mellitus with other skin ulcer (principal); I83.012 Varicose veins of right lower extremity with ulcer of calf; L97.211 Non-pressure chronic ulcer of right calf limited to breakdown of skin; L97.812 Non-pressure chronic ulcer of other part of right lower leg with fat layer exposed; I83.022 Varicose veins of left lower extremity with ulcer of calf; L97.221 Non-pressure chronic ulcer of left calf limited to breakdown of skin; L97.821 Non-pressure chronic ulcer of other part of left lower leg limited to breakdown of skin; K61.0 Anal abscess; E11.36 Type 2 diabetes mellitus with diabetic cataract; E11.65 Type 2 diabetes mellitus with hyperglycemia; M19.90 Unspecified osteoarthritis, unspecified site; I10 Essential (primary) hypertension; I87.2 Venous insufficiency (chronic) (peripheral); E78.00 Pure hypercholesterolemia, unspecified; K21.9 Gastro-esophageal reflux disease without esophagitis; Z90.710 Acquired absence of both cervix and uterus; Z86.73 Personal history of transient ischemic attack (TIA), and cerebral infarction without residual deficits; Z87.891 Personal history of nicotine dependence
CPT/HCPCS: 36416; 82948; 97597

== ENCOUNTER 2019-07-01 11:15 | Outpatient (CLI) | payer MEDICARE | END 2019-07-01 12:44 | disposition home or self-care (01) | LOC: WOUND CARE 11:15 → EDSTATUS 11:20 → WOUND CARE 12:44 | PROVIDERS: ATTEND Nurse Practitioner | DX: E11.622 Type 2 diabetes mellitus with other skin ulcer (principal); I83.012 Varicose veins of right lower extremity with ulcer of calf; L97.211 Non-pressure chronic ulcer of right calf limited to breakdown of skin; L97.812 Non-pressure chronic ulcer of other part of right lower leg with fat layer exposed; I83.022 Varicose veins of left lower extremity with ulcer of calf; L97.221 Non-pressure chronic ulcer of left calf limited to breakdown of skin; L97.821 Non-pressure chronic ulcer of other part of left lower leg limited to breakdown of skin; K61.0 Anal abscess; E11.36 Type 2 diabetes mellitus with diabetic cataract; E11.65 Type 2 diabetes mellitus with hyperglycemia; M19.90 Unspecified osteoarthritis, unspecified site; I10 Essential (primary) hypertension; I87.2 Venous insufficiency (chronic) (peripheral); E78.00 Pure hypercholesterolemia, unspecified; K21.9 Gastro-esophageal reflux disease without esophagitis; Z90.710 Acquired absence of both cervix and uterus; Z86.73 Personal history of transient ischemic attack (TIA), and cerebral infarction without residual deficits; Z87.891 Personal history of nicotine dependence | CPT/HCPCS: 29580; 29581 ==

== ENCOUNTER 2019-07-08 11:27 | Outpatient (CLI) | payer MEDICARE | END 2019-07-08 12:53 | disposition home or self-care (01) | LOC: WOUND CARE 11:27 | PROVIDERS: ATTEND Nurse Practitioner | DX: E11.622 Type 2 diabetes mellitus with other skin ulcer (principal); I83.012 Varicose veins of right lower extremity with ulcer of calf; L97.211 Non-pressure chronic ulcer of right calf limited to breakdown of skin; L97.812 Non-pressure chronic ulcer of other part of right lower leg with fat layer exposed; I83.022 Varicose veins of left lower extremity with ulcer of calf; L97.221 Non-pressure chronic ulcer of left calf limited to breakdown of skin; L97.821 Non-pressure chronic ulcer of other part of left lower leg limited to breakdown of skin; K61.0 Anal abscess; E11.36 Type 2 diabetes mellitus with diabetic cataract; E11.65 Type 2 diabetes mellitus with hyperglycemia; M19.90 Unspecified osteoarthritis, unspecified site; I10 Essential (primary) hypertension; I87.2 Venous insufficiency (chronic) (peripheral); K21.9 Gastro-esophageal reflux disease without esophagitis; Z90.710 Acquired absence of both cervix and uterus; Z86.73 Personal history of transient ischemic attack (TIA), and cerebral infarction without residual deficits; Z87.891 Personal history of nicotine dependence | CPT/HCPCS: 29581 ==

== ENCOUNTER 2019-07-15 11:45 | Outpatient (CLI) | payer MEDICARE | END 2019-07-15 12:44 | disposition home or self-care (01) | LOC: WOUND CARE 11:45 | PROVIDERS: ATTEND Nurse Practitioner | DX: E11.622 Type 2 diabetes mellitus with other skin ulcer (principal); I83.012 Varicose veins of right lower extremity with ulcer of calf; L97.211 Non-pressure chronic ulcer of right calf limited to breakdown of skin; L97.818 Non-pressure chronic ulcer of other part of right lower leg with other specified severity; I83.022 Varicose veins of left lower extremity with ulcer of calf; L97.221 Non-pressure chronic ulcer of left calf limited to breakdown of skin; L97.828 Non-pressure chronic ulcer of other part of left lower leg with other specified severity; K61.0 Anal abscess; E11.36 Type 2 diabetes mellitus with diabetic cataract; E11.65 Type 2 diabetes mellitus with hyperglycemia; M19.90 Unspecified osteoarthritis, unspecified site; I10 Essential (primary) hypertension; I87.2 Venous insufficiency (chronic) (peripheral); K21.9 Gastro-esophageal reflux disease without esophagitis; Z90.710 Acquired absence of both cervix and uterus; Z86.73 Personal history of transient ischemic attack (TIA), and cerebral infarction without residual deficits; Z87.891 Personal history of nicotine dependence | CPT/HCPCS: 82948; G0463 ==